=== PATIENT | male | born 1990 | race Caucasian/White ===

== ENCOUNTER 2018-06-29 12:23 | Day surgery (SDC) | payer MEDICAID ==
[~2018-06-29] VITALS: Ht 185.4 cm; Wt 70.6 kg
[~2018-06-29 12:23] MED LIST: CEFAZOLIN 1,000 MG ONE; DEXAMETHASONE 4 MG/ML, 1ML ONE; METOCLOPRAMIDE 5 MG/ML, 2ML ONE; ONDANSETRON 2MG/ML, 2ML ONE; PROPOFOL 10 MG/ML, 20ML ONE
[2018-06-29] MEDS ORDERED: LACTATED RINGERS 1,000 ML IV SCH (12:51)
[2018-06-29] MEDS ORDERED: LIDOCAINE-MPF 1%, 2ML INFIL ONE (13:00)
[2018-06-29 13:19] VITALS: BP 123/86
[2018-06-29] MEDS ORDERED: BUPIVACAINE/PF-EPI 0.25% 1:200K ONE (14:56)
[2018-06-29] MEDS ORDERED: MIDAZOLAM 1 MG/ML, 2ML ONE (15:09)
[2018-06-29] MEDS ORDERED: FENTANYL PF 100 MCG/2ML ONE ×2 (15:09→16:01)
[2018-06-29] MEDS: FENTANYL PF 100 MCG/2ML IV PRN ×2 (15:25→16:00)
[2018-06-29] MEDS ORDERED: MEPERIDINE/PF 50 MG/ML ONE (15:55)
[2018-06-29] MEDS ORDERED: ONDANSETRON 2MG/ML, 2ML IVPush PRN (16:00)
[2018-06-29] MEDS ORDERED: OXYcodone 5 MG/5 ML ORAL.SOL UDC PO PRN (16:00)
[2018-06-29] MEDS ORDERED: LABETALOL 5MG/ML, 20ML IV PRN (16:00)
[2018-06-29] MEDS ORDERED: MIDAZOLAM 1 MG/ML, 2ML IV PRN (16:00)
[2018-06-29] MEDS: MEPERIDINE/PF 25MG/0.5ML IVPush PRN ×2 (16:00→16:15)
[2018-06-29] MEDS ORDERED: HYDROmorphone 1 MG/ML, 1ML IV PRN (16:00)
[2018-06-29] MEDS ORDERED: OXYcodone 5 MG/5 ML ORAL.SOL UDC ONE (16:02)
[2018-06-29] MEDS ORDERED: DIPHENHYDRAMINE 50 MG/ML, 1ML ONE (16:31)
[2018-06-29] MEDS ORDERED: DIPHENHYDRAMINE 50 MG/ML, 1ML IVPush ONE (17:00)
== END 2018-06-29 17:45 | disposition home or self-care (01) ==
LOC: OUT 12:23
PROVIDERS: ATTEND Orthopaedic Surgery
DX: S52.571A Other intraarticular fracture of lower end of right radius, initial encounter for closed fracture (principal); F31.9 Bipolar disorder, unspecified; X58.XXXA Exposure to other specified factors, initial encounter; Y93.89 Activity, other specified; Y92.89 Other specified places as the place of occurrence of the external cause; Y99.8 Other external cause status
CPT/HCPCS: 25609; 73100; 76000; C1713; J0690; J1100; J1200; J2175; J2250; J2405; J2704; J2765; J3010